=== PATIENT | female | born 1985 | race Caucasian/White ===

== ENCOUNTER 2020-12-22 15:17 | Emergency (ER) | payer SELFPAY ==
[~2020-12-22] VITALS: Ht 172.7 cm; Wt 72.7 kg
[2020-12-22 15:19] VITALS: BP 142/75
== END 2020-12-22 17:25 | disposition left against medical advice (07) ==
LOC: M ED 15:17
DX: Z53.29 Procedure and treatment not carried out because of patient's decision for other reasons (principal)